=== PATIENT | female | born 1950 | race Asian ===

== ENCOUNTER 2018-02-09 07:22 | Day surgery (SDC) | payer MEDICARE ==
[~2018-02-09 07:22] MED LIST: KETOROLAC TROMETHAMINE 0.45% 4 DROP/0.4 ML DROPERETTE OD PRN
[2018-02-09] MEDS: TETRACAINE HCL 0.5% OPH SOLN 0.6 ML DROPERETTE OD PRN ×2 (08:08→08:35)
[2018-02-09] MEDS: BESIFLOXACIN HCL 0.6% OPH SUSP 5 ML BOTTLE OD PRN ×4 (08:09→09:08)
[2018-02-09] MEDS: TROPICAMIDE 1% OPH SOLN 3 ML OD PRN ×3 (08:09→08:32)
[2018-02-09] MEDS: CYCLOPENTOLATE 0.2%/PHENYLEPHRINE 1% OPH SOLN 2 ML OD PRN ×3 (08:09→08:32)
[2018-02-09] MEDS ORDERED: MIDAZOLAM 2 MG/2 ML INJ ONE (08:24)
[2018-02-09] MEDS ORDERED: FENTANYL CITRATE INJ/PF 100 MCG/2 ML AMPUL ONE (08:25)
[2018-02-09] MEDS: BUPIVACAINE HCL 0.75% INJ/PF (7.5 MG/1 ML) 10 ML SDV OD PRN ×2 (08:44)
[2018-02-09] MEDS: LIDOCAINE 4% INJ/PF (40 MG/ML) 5 ML AMPUL OD PRN ×2 (08:44)
[2018-02-09] MEDS: LIDOCAINE 1% INJ-PF (10 MG/ML) 30 ML SDV ONE ×2 (08:57)
[2018-02-09] MEDS: EPINEPHRINE INJ/PF 1 MG/1 ML AMPULE ONE ×2 (08:57)
[2018-02-09] MEDS: CHONDR SU A NA/HYALUR INTRAOC KIT (SURGICARE) ONE ×2 (08:57)
[2018-02-09] MEDS: DORZOLAMIDE HCL 2%/TIMOLOL MALEAT 0.5% OPH SOLN 10 ML OD PRN ×2 (09:08)
--- NOTE | 2018-02-09 10:26 | [facility] DISCHARGE SUMMARY E ---
[facility] Discharge Summary NAME: BETSY NIEVES AGE: 67Y ADMITTED: 02/09/2018 DISCHARGED: 02/09/2018 FINAL DIAGNOSIS: CATARACT, RIGHT EYE HOSPITAL COURSE: The patient is a 67-year-old lady who underwent uneventful cataract extraction with intraocular lens implant, right eye on 02/09/2018. She will be discharged to home. She is instructed to resume preoperative medications, take Tylenol as needed for discomfort, to keep her eye shielded, to use Besivance, Prolensa, and Durezol at 3 p.m. and 8 p.m., and to follow up in my office in 1 day. DICTATING PHYSICIAN: EMERALD NATION M.D. [id number] PHY#: [id number] ID: [id number] JOB#: [id number] ACCT: [id number] cc:EMERALD NATION M.D. >
--- NOTE | 2018-02-09 10:27 | [facility] OPERATIVE REPORT E ---
[facility] Operative Report NAME: BETSY NIEVES AGE: 67Y DATE OF SURGERY: 02/09/2018 ROOM: PREOPERATIVE DIAGNOSIS: CATARACT, RIGHT EYE. POSTOPERATIVE DIAGNOSIS: CATARACT, RIGHT EYE. PROCEDURE PERFORMED: PHACOEMULSIFICATION WITH POSTERIOR CHAMBER INTRAOCULAR LENS, RIGHT EYE. SURGEON: EMERALD NATION MD ANESTHESIA: TOPICAL WITH MAC. INDICATIONS FOR SURGERY: Difficulty reading road signs and captions on TV. Best corrected visual acuity 20/50. PROCEDURE: The patient was brought to the Operating Room and placed on the operative table. Following tetracaine drops, topical anesthesia was administered. This consisted of instrument wipe pledgets soaked in a solution of 4% Xylocaine mixed with 0.75% Marcaine in a 1:2 ratio. A 2 x 1 cm pledget was placed in the superior fornix. A 1 x 1 cm pledget was placed in the inferior fornix. The eye was patched shut for 5 minutes. The patch was removed. The eye was sterilely prepped and draped in the usual manner. Lid speculum was placed in the eye. The pledgets were removed. 4-0 black silk sutures were placed around the superior and the inferior rectus muscles to be used as traction. A conjunctival peritomy was made at the 10 o'clock position. Hemostasis was obtained with bipolar cautery. A posterior limbal groove was created using a crescent knife and dissected anteriorly towards the cornea. A sharp point blade was used to create a paracentesis site at the 2 o'clock position. A 2.4 mm keratome was used to enter the anterior chamber through the groove. Viscoelastic was injected into the anterior chamber. An anterior capsulotomy was performed using Utrata forceps in a capsulorrhexis fashion. Hydrodissection and hydrodelineation were performed. Phacoemulsification was performed in ohupnc-lcc-nctjexj technique. A total of 5.68 CDE phaco time was used. Following this, the I/A unit was used to remove residual cortex. Viscoelastic was injected into the capsular bag. Intraocular lens model SN60WF, 13.0 diopters, serial number [id number] was placed in the capsular bag. The I/A unit was used to remove residual viscoelastic. The wound was seen to be watertight under high and low pressure, and no sutures were placed. The intraocular lens was well centered. The pressure was adjusted in the eye to normal pressure. The 4-0 black silk sutures and lid speculum were removed. The eye was shielded after Besivance drops were placed. The patient tolerated the procedure well and was sent to the Recovery Room in good condition. One drop of Cosopt was placed in the eye at the end of surgery. DICTATING PHYSICIAN: EMERALD NATION M.D. DICTATING PHYSICIAN: EMERALD NATION M.D. [id number] PHY#: [id number] ID: [id number] JOB#: [id number] ACCT: [id number] cc:EMERALD NATION M.D. >
== END 2018-02-09 09:53 | disposition home or self-care (01) ==
LOC: SC 07:22
PROVIDERS: ATTEND Ophthalmology
DX: H25.813 Combined forms of age-related cataract, bilateral (principal); H40.013 Open angle with borderline findings, low risk, bilateral; H52.4 Presbyopia; H35.363 Drusen (degenerative) of macula, bilateral; H04.123 Dry eye syndrome of bilateral lacrimal glands; H43.813 Vitreous degeneration, bilateral; I10 Essential (primary) hypertension; E78.00 Pure hypercholesterolemia, unspecified; Z79.899 Other long term (current) drug therapy; Z88.5 Allergy status to narcotic agent; Z79.82 Long term (current) use of aspirin; Z87.891 Personal history of nicotine dependence; Z91.041 Radiographic dye allergy status
CPT/HCPCS: 66984; V2632; J2250; J3490 ×4; A9270; J0171; J3010; 142

== ENCOUNTER 2018-03-02 08:53 | Day surgery (SDC) | payer MEDICARE ==
[~2018-03-02 08:53] MED LIST changes: -KETOROLAC TROMETHAMINE 0.45% 4 DROP/0.4 ML DROPERETTE OD PRN; +KETOROLAC TROMETHAMINE 0.45% 4 DROP/0.4 ML DROPERETTE OS PRN
[2018-03-02] MEDS: TETRACAINE HCL 0.5% OPH SOLN 0.6 ML DROPERETTE OS PRN ×2 (09:50→10:18)
[2018-03-02] MEDS: TROPICAMIDE 1% OPH SOLN 3 ML OS PRN ×3 (09:51→10:16)
[2018-03-02] MEDS: CYCLOPENTOLATE 0.2%/PHENYLEPHRINE 1% OPH SOLN 2 ML OS PRN ×3 (09:51→10:16)
[2018-03-02] MEDS: BESIFLOXACIN HCL 0.6% OPH SUSP 5 ML BOTTLE OS PRN ×4 (09:51→10:59)
[2018-03-02] MEDS ORDERED: ONDANSETRON HCL INJ/PF 4 MG/2 ML SDV ONE (10:12)
[2018-03-02] MEDS ORDERED: FENTANYL CITRATE INJ/PF 100 MCG/2 ML AMPUL ONE (10:12)
[2018-03-02] MEDS ORDERED: MIDAZOLAM 2 MG/2 ML INJ ONE (10:12)
[2018-03-02] MEDS: BUPIVACAINE HCL 0.75% INJ/PF (7.5 MG/1 ML) 10 ML SDV OS PRN ×2 (10:38)
[2018-03-02] MEDS: LIDOCAINE 4% INJ/PF (40 MG/ML) 5 ML AMPUL OS PRN ×2 (10:38)
[2018-03-02] MEDS: EPINEPHRINE INJ/PF 1 MG/1 ML AMPULE ONE ×2 (10:48)
[2018-03-02] MEDS: LIDOCAINE 1% INJ-PF (10 MG/ML) 30 ML SDV ONE ×2 (10:48)
[2018-03-02] MEDS: CHONDR SU A NA/HYALUR INTRAOC KIT (SURGICARE) ONE ×2 (10:48)
[2018-03-02] MEDS: DORZOLAMIDE HCL 2%/TIMOLOL MALEAT 0.5% OPH SOLN 10 ML OS PRN ×2 (10:59)
--- NOTE | 2018-03-02 11:31 | [facility] DISCHARGE SUMMARY E ---
[facility] Discharge Summary NAME: BETSY NIEVES AGE: 67Y ADMITTED: 03/02/2018 DISCHARGED: 03/02/2018 FINAL DIAGNOSIS: CATARACT, LEFT EYE HOSPITAL COURSE: The patient is a 67-year-old lady who underwent uneventful cataract extraction with intraocular lens implant, left eye on 03/02/2018. She will be discharged to home. She is instructed to resume preoperative medications, take Tylenol as needed for discomfort, to keep her eye shielded, to use Durezol, Ilevro, and Besivance at 3 p.m. and 8 p.m., and to follow up in my office in 1 day. DICTATING PHYSICIAN: EMERALD NATION M.D. [id number] PHY#: [id number] ID: [id number] JOB#: [id number] ACCT: [id number] cc:EMERALD NATION M.D. >
--- NOTE | 2018-03-02 11:32 | [facility] OPERATIVE REPORT E ---
[facility] Operative Report NAME: BETSY NIEVES AGE: 67Y DATE OF SURGERY: 03/02/2018 ROOM: PREOPERATIVE DIAGNOSIS: CATARACT, LEFT EYE. POSTOPERATIVE DIAGNOSIS: CATARACT, LEFT EYE. PROCEDURE PERFORMED: PHACOEMULSIFICATION WITH POSTERIOR CHAMBER INTRAOCULAR LENS, LEFT EYE. SURGEON: EMERALD NATION MD ANESTHESIA: TOPICAL WITH MAC. PROCEDURE: The patient was brought to the Operating Room and placed on the operative table. Following tetracaine drops, topical anesthesia was administered. This consisted of instrument wipe pledgets soaked in a solution of 4% Xylocaine mixed with 0.75% Marcaine in a 1:2 ratio. A 2 x 1 cm pledget was placed in the superior fornix. A 1 x 1 cm pledget was placed in the inferior fornix. The eye was patched shut for 5 minutes. The patch was removed. The eye was sterilely prepped and draped in the usual manner. Lid speculum was placed in the eye. The pledgets were removed. 4-0 black silk sutures were placed around the superior and the inferior rectus muscles to be used as traction. A conjunctival peritomy was made at the 10 o'clock position. Hemostasis was obtained with bipolar cautery. A posterior limbal groove was created using a crescent knife and dissected anteriorly towards the cornea. A sharp point blade was used to create a paracentesis site at the 2 o'clock position. A 2.4 mm keratome was used to enter the anterior chamber through the groove. Viscoelastic was injected into the anterior chamber. An anterior capsulotomy was performed using Utrata forceps in a capsulorrhexis fashion. Hydrodissection and hydrodelineation were performed. Phacoemulsification was performed in rvackt-[id number]-szmznvi technique. A total of 7.64 CDE phaco time was used. Following this, the I/A unit was used to remove residual cortex. Viscoelastic was injected into the capsular bag. Intraocular lens model SN60WF, 15.0 diopters, serial number [id number] was placed in the capsular bag. The I/A unit was used to remove residual viscoelastic. The wound was seen to be watertight under high and low pressure, and no sutures were placed. The intraocular lens was well centered. The pressure was adjusted in the eye to normal pressure. The 4-0 black silk sutures and lid speculum were removed. The eye was shielded after Besivance drops were placed. The patient tolerated the procedure well and was sent to the Recovery Room in good condition. A drop of Cosopt was placed in the eye at the end of the surgery. DICTATING PHYSICIAN: EMERALD NATION M.D. DICTATING PHYSICIAN: EMERALD NATION M.D. [id number] PHY#: [id number] ID: [id number] JOB#: [id number] ACCT: [id number] cc:EMERALD NATION M.D. >
== END 2018-03-02 11:46 | disposition home or self-care (01) ==
LOC: SC 08:53
PROVIDERS: ATTEND Ophthalmology
DX: H25.812 Combined forms of age-related cataract, left eye (principal); Z96.1 Presence of intraocular lens; I10 Essential (primary) hypertension; Z79.899 Other long term (current) drug therapy; Z88.5 Allergy status to narcotic agent; Z79.82 Long term (current) use of aspirin
CPT/HCPCS: 66984; V2632; J2250; J3490 ×4; A9270; J0171; J3010; J2405; 142

== ENCOUNTER → 2019-09-27 | Outpatient (CLI) | payer MEDICARE ==
--- NOTE | 2019-09-27 12:24 | WOMENS IMAGING REPORT ---
EXAM DESCRIPTION: 3D SCREENING MAMMO BILAT IMAGES COMPLETED DATE/TIME: 09/27/2019 11:09 am REASON FOR STUDY: Z12.31 ENCOUNTER FOR SCREENING MAMMOGRAM FOR MALIGNANT NEOPLASM OF BREAST Z12.31 ENCNTR SCREEN MAMMOGRAM FOR MALIGNANT NEOPLASM OF ION COMPARISON: None. EXAM PARAMETERS: Standard craniocaudal and mediolateral oblique views of each breast recorded using digital acquisition and breast tomosynthesis. Additional "push-back craniocaudal and mediolateral ob lique images acquired. Read with the assistance of CAD. .[facility] - R2 Leak Hunter Version 9.2 LIMITATIONS: None. FINDINGS: IMPLANTS: Bilateral subglandular implants. Findings present which are benign by mammographic criteria. No suspicious masses, calcifications or a rchitectural distortion. Benign mammographic findings may include one or more of the following: Smooth masses, popcorn/rim/co arse calcifications, asymmetries, post-procedure changes, and lesions with long-standing stability. IMPRESSION: BENIGN MAMMOGRAPHIC FINDINGS. BIRADS 2 BREAST DENSITY: b. There are scattered areas of fibroglandular density. BIRAD: ASSESSMENT: 2 BENIGN FINDING(S) RECOMMENDATION: ROUTINE SCREENING COMMENT: The patient has been notified of the results by letter per MQSA requirements. Additional no tification policies are in place for contacting patient with suspicious or incomplete findings. Quality ID #225: The [employer] recommends an annual screening mammogram for women aged 40 years or over. This facility utilizes a reminder system to ensure that all patients receive reminder letters, and/or direct phone calls for appointments. This includes reminders for routine scr eening mammograms, diagnostic mammograms, or other Breast Imaging Interventions when appropriate. Th is patient will be placed in the appropriate reminder system. TECHNICAL DOCUMENTATION: FINDING NUMBER: (1) ASSESSMENT: (1) JOB ID: [id number] 2010 [employer]- All Rights Reserved Reading location - IP/workstation name: [email or web address]
== END ==
LOC: WI 10:36
PROVIDERS: ATTEND Family Medicine
DX: Z12.31 Encounter for screening mammogram for malignant neoplasm of breast (principal)
CPT/HCPCS: 77063; 77067